=== PATIENT | male | born 1950 | race Caucasian/White ===

== ENCOUNTER 2020-09-16 18:19 | Emergency (ER) | payer OTHER, SELFPAY ==
[2020-09-16 18:34] VITALS: PULSE 77; RESP 20; O2SAT 100; BMI 25.8
[2020-09-16 19:02] VITALS: BP 139/87; PULSE 70; RESP 18; TEMP 37.1; O2SAT 98; BMI 24.3
--- NOTE | 2020-09-16 19:10 | HMH.EDUTC ---
[facility] [place] Disposition Clinical Impression: Strep throat Disposition: Home, Self-Care Condition on Discharge: Good Instructions: Strep Throat (Alternative Therapy), Strep Throat, DI for Strep Throat, Azithromycin Additional Instructions: *Monitor Temp, Over the counter Motrin or Tylenol as directed/as needed Tylenol every 4 hours and Motrin every 6 hours (as long as your family doctor has told you that you can take it) for fever or pain. and straight to ER if unable to lower temp less than 101.0 after medication given *Warm salt water gargles may help to soothe the throat *Throat Lozenges *Warm fluids like tea with honey may help to soothe the throat *Sleep elevated *Humidifier/Vaporizer *If you did not take Penicillin shot or was unable to, start taking antibiotic immediately and make sure that you take it for the FULL length of time although you should start to feel better in 24-48 hours *change toothbrush and toothpaste 24-48 hours after starting to take antibiotics so you do not reinfect yourself Monitor Temp. Tylenol and/or Ibuprofen as needed. ER if fever is no less than 101 despite alternating Tylenol and Ibuprofen * Encourage fluids, water, Gatorade, powerade, pedialyte if infant/toddler/or child *Cold fluids, popsicles and ice cream may feel good on his throat Follow up IMMEDIATELY for new or worsening symptoms or no Noticeable improvement over the next 48-72 hours. 911 for difficulty breathing or swallowing Follow up with ENT if no improvement or any worsening of symptoms Prescriptions: Azithromycin [Zithromax 200mg/5ml Oral Susp.] 6.5 ml PO DAILY #27 susprecons Transmission Status: Pending to [id number] Referrals: PCP,No [Primary Care Provider] - As needed Time of Disposition: 19:55 Medical Decision Making - Constantino Inquiry Pt receiving controlled substance: No Constantino was queried for this patient: No Vital Signs: 09/16/20 18:34 09/16/20 19:02 Temperature 98.7 F Temperature Source Oral Pulse Rate [Left Radial] 77 70 Respiratory Rate 20 18 Blood Pressure [Right Arm] 139/87 Blood Pressure Mean [Right Arm] 104 Blood Pressure Source [Right Arm] Automatic Cuff Blood Pressure Position [Right Arm] Sitting 02 Sat by Pulse Oximetry 100 98 Oxygen Delivery Method Room Air Room Air - Lab Data Lab Results 09/16/20 19:16: Strep Scn Rapid Clinic Positive A Orders (Tests/Meds): ED MEDICATIONS Discontinued Medications Generic Name Dose Route Start Last Admin Trade Name Rosendo PRN Reason Stop Dose Admin Azithromycin 500 mg 09/16/20 19:46 Azithromycin 200mg/5ml Susp 15ml Bottle PO 09/16/20 19:47 ONCE ONE Protocol Medical Decision Narrative: Patient was given fluids to drink and drank 12oz bottle of water without difficulty States that at this time he is not hurting and not feeling swollen State that the cold water felt good on his throat Discussed transfer back to the ED and patient/family declined States that they will call his ENT tomorrow morning and keep him on soft diet and Follow up OSCAR and return to the ER if any worsening of symptoms [facility] [place] HPI - General Stated complaint: swollen mouth and throat cant swallow Time Seen by Provider: 09/16/20 19:10 Mode of Arrival: Ambulatory Source of Information: Patient Limitations: No Limitations Description of Symptoms (Recalled from Triage Doc. by RN): lip and tongue swelling for one week. pt has a history or cancer and his oncologist wanted to him to be checked out. his has been a chronic problem over the past week. HEENT Symptoms (Recalled from RN notes): No Resp Symptoms (Recalled from RN notes): No Skin Symptoms (Recalled from RN notes): No MS Symptoms (Recalled from RN notes): No Functional Status (Recalled from RN notes): na - History of Present Illness Provider Complaint: Patient states that he had chemo and radiation back in February and had all his teeth removed State that when he tries to eat on his right side he
[2020-09-16 19:28] LABS: UTC Strep Screen (Rapid) Positive (Negative)
[2020-09-16 19:58] VITALS: BP 127/73; PULSE 71; RESP 18; TEMP 36.9
== END 2020-09-16 19:59 | disposition home or self-care (01) ==
PROVIDERS: Emergency Provider Nurse Practitioner
DX: J02.0 Streptococcal pharyngitis (principal); Z88.0 Allergy status to penicillin
CPT/HCPCS: 87880; 99202; G0463